=== PATIENT | male | born 1980 | race Two or more races ===

== ENCOUNTER 2018-08-21 08:12 | Outpatient (CLI) | payer OTHER | END 2018-08-21 08:19 | disposition home or self-care (01) | LOC: RX STUDY 08:12 | DX: C18.6 Malignant neoplasm of descending colon (principal); Z85.038 Personal history of other malignant neoplasm of large intestine; Z88.1 Allergy status to other antibiotic agents ==

== ENCOUNTER 2020-02-19 06:15 | Day surgery (SDC) | payer OTHER | END 2020-02-19 10:30 | disposition home or self-care (01) | LOC: AMB-ENDOS 06:15 | PROVIDERS: ATTEND Colon & Rectal Surgery | DX: C20 Malignant neoplasm of rectum (principal); K64.1 Second degree hemorrhoids ==

== ENCOUNTER → 2021-05-05 | Emergency (ER) | payer OTHER ==
[~2021-05-05] VITALS: Ht 172.7 cm; Wt 114.3 kg
== END | disposition home or self-care (01) ==
LOC: ER 13:43
DX: K64.4 Residual hemorrhoidal skin tags (principal)